=== PATIENT | male | born 1995 | race Two or more races ===

== ENCOUNTER 2021-08-19 08:38 | Outpatient (RCR) | payer BC, SELFPAY | END 2021-08-19 09:42 | disposition home or self-care (01) | LOC: HO.PHPA 08:38 | PROVIDERS: Visit Provider Psychiatry & Neurology Psychiatry | DX: F41.9 Anxiety disorder, unspecified (principal); F32.9 Major depressive disorder, single episode, unspecified; F42.9 Obsessive-compulsive disorder, unspecified; G47.9 Sleep disorder, unspecified ==